=== PATIENT | female | born 1990 | race Caucasian/White ===

== ENCOUNTER 2018-03-19 05:50 | Day surgery (SDC) | payer OTHER ==
[2018-03-18 09:56] LABS: HEMATOCRIT 37.3 % (36.0-48.0); HEMOGLOBIN 12.9 g/dL (12-16); MCH 30.8 pg (26.0-34.0); MCHC 34.6 g/dL (31.0-37.0); MEAN PLATELET VOLUME 9.5 fL (7.4-10.4); RBC 4.19 10x6/uL (4.00-5.40); RDW 12.9 % (11.5-14.5); WBC 8.2 10x3/uL (4.8-10.8)
[~2018-03-19] VITALS: Ht 167.6 cm; Wt 70.8 kg
[~2018-03-19 05:50] MED LIST: ADIPEX-P37.5 M1 PO; CYCLOBENZAPRINE5 MG; FISH OIL 1,0001 CA1 PO; MOBIC7.5 MG PO
[2018-03-19 06:30] VITALS: BP 92/61; Ht 167.6 cm; Wt 70.8 kg
[2018-03-19] MEDS ORDERED: HYDROCODON-ACE1 EAC7 PO (08:46)
== END 2018-03-19 11:10 | disposition home or self-care (01) ==
LOC: D.OPS 05:50 → D.PAN 08:00 → D.OPS 08:00 → D.PAN 03-24 08:00 → D.OPS 03-24 08:00
PROVIDERS: Anesthesiology
DX: K80.20 Calculus of gallbladder without cholecystitis without obstruction (principal)